=== PATIENT | male | born 1995 | race Caucasian/White ===

== ENCOUNTER 2017-03-13 15:40 | Emergency (ER) | payer OTHER ==
[2017-03-13 15:47] VITALS: BP 132/74
--- NOTE | 2017-03-13 16:07 | ER Document Report ---
ED Medical Screen (RME) - General Chief Complaint: Wound Infection Stated Complaint: FINGER PAIN Time Seen by Provider: 03/13/17 15:57 Notes: 22-year-old male patient suffered a table saw injury to left index finger on 02/04/2017. Had surgery on 02/11/2017. Had a cast placed on 02/21/2017. Had cast removed on 02/06/2017. He reports at the time the told in the wound and the bone area that had been operated on was not healing well and they are concerned about the need to do surgery again and resect more bone and soft tissue. He states the pain has been progressively getting worse since the cast was removed on 03/09/2017. He has a follow-up appointment on 03/22/2017 I have greeted and performed a rapid initial assessment of this patient. A comprehensive ED assessment and evaluation of the patient, analysis of test results and completion of the medical decision making process will be conducted by additional ED providers. TRAVEL OUTSIDE OF THE [place] IN LAST 30 DAYS: No - Related Data Allergies/Adverse Reactions: No Known Allergies Allergy (Verified 03/13/17 15:44) Past Medical History Renal/ Medical History: Denies: Hx Peritoneal Dialysis Physical Exam - Vital signs Vitals: Temp Pulse Resp BP Pulse Ox 98.3 F 73 16 132/74 H 99 03/13/17 15:44 03/13/17 15:44 03/13/17 15:44 03/13/17 15:44 03/13/17 15:44 Course - Vital Signs Vital signs: Temp Pulse Resp BP Pulse Ox 98.3 F 73 16 132/74 H 99 03/13/17 15:44 03/13/17 15:44 03/13/17 15:44 03/13/17 15:44 03/13/17 15:44
--- NOTE | 2017-03-13 16:42 | RADIOLOGY REPORT (SQ) ---
EXAM DESCRIPTION: FINGER LEFT COMPLETED DATE/TIME: 03/13/2017 4:21 pm REASON FOR STUDY: post-op pain, swelling COMPARISON: None. NUMBER OF VIEWS: Three views of the left hand and index finger. LIMITATIONS: None. FINDINGS: Soft tissue swelling with extensive bone lysis, destruction of the distal phalanx and dist al 3rd of the middle phalanx of the index finger. Patient reportedly had injury with surgery at an outside institution. Findings presumably related to osteomyelitis. Remaining bones are in tact. OTHER: No other significant finding. IMPRESSION: 1. Extensive bone destruction in the distal index finger as above. Presumably related o steomyelitis. TECHNICAL DOCUMENTATION: JOB ID: [id number]
[2017-03-13 16:55] LABS: ABSOLUTE BASOPHILS # (AUTO) 0.1 10^3/uL (0.0-0.2); ABSOLUTE EOSINOPHILS # (AUTO) 0.3 10^3/uL (0.0-0.6); ABSOLUTE LYMPHOCYTES (AUTO) 1.3 10^3/uL (0.5-4.7); ABSOLUTE MONOCYTES (AUTO) 0.4 10^3/uL (0.1-1.4); ABSOLUTE NEUT (AUTO) 2.7 10^3/uL (1.7-8.2); BASOPHILS % (AUTO) 1.2 % (0-2); EOSINOPHILS % (AUTO) 5.6 % (0-6); HEMATOCRIT 44.1 % (37.9-51.0); HEMOGLOBIN 15.3 g/dL (13.5-17.0); HGB HCT DIFFERENCE 1.8; LYMPHOCYTES % (AUTO) 28.1 % (13-45); MEAN CORPUSCULAR HEMOGLOBIN 31.5 pg (27.0-33.4); MEAN CORPUSCULAR HGB CONC 34.7 g/dL (32.0-36.0); MEAN CORPUSCULAR VOLUME 91 fl (80-97); MONOCYTES % (AUTO) 8.8 % (3-13); RED BLOOD COUNT 4.86 10^6/uL (4.35-5.55); RED CELL DISTRIBUTION WIDTH 13.5 % (11.5-14.0); SEGMENTED NEUTROPHILS % (AUTO) 56.3 % (42-78); WHITE BLOOD COUNT 4.7 10^3/uL (4.0-10.5)
--- NOTE | 2017-03-13 17:10 | ER Document Report ---
ED Wound - General Chief Complaint: Wound Infection Stated Complaint: FINGER PAIN Time Seen by Provider: 03/13/17 15:57 Mode of Arrival: Ambulatory Information source: Patient Notes: 22 yo male with hx work related table saw left index finger in january with surgery at [facility] was told feb 06 that he needs amputation due to unexpected osteomylitis of the distal phalanx. Wants to be checked- second opinion. No fever. On kefle 500mg tid. TRAVEL OUTSIDE OF THE [place] IN LAST 30 DAYS: No - Related Data Allergies/Adverse Reactions: No Known Allergies Allergy (Verified 03/13/17 15:44) Past Medical History - General Information source: Patient - Social History Smoking Status: Never Smoker Frequency of alcohol use: None Drug Abuse: None Occupation: [employer] Lives with: Family Family History: Reviewed & Not Pertinent Patient has suicidal ideation: No Patient has homicidal ideation: No - Medical History Medical History: Negative Renal/ Medical History: Denies: Hx Peritoneal Dialysis Past Surgical History: Reports: Hx Orthopedic Surgery - left index finger Review of Systems - Review of Systems Constitutional: No symptoms reported EENT: No symptoms reported Cardiovascular: No symptoms reported Respiratory: No symptoms reported Gastrointestinal: No symptoms reported Genitourinary: No symptoms reported Male Genitourinary: No symptoms reported Musculoskeletal: See HPI Skin: No symptoms reported Hematologic/Lymphatic: No symptoms reported Neurological/Psychological: No symptoms reported Physical Exam - Vital signs Vitals: Temp Pulse Resp BP Pulse Ox 98.3 F 73 16 132/74 H 99 03/13/17 15:44 03/13/17 15:44 03/13/17 15:44 03/13/17 15:44 03/13/17 15:44 Interpretation: Normal - General General appearance: Appears well, Alert - HEENT Head: Normocephalic, Atraumatic Eyes: Normal Pupils: PERRL Neck: Supple - Respiratory Respiratory status: No respiratory distress Chest status: Nontender Breath sounds: Normal Chest palpation: Normal - Cardiovascular Rhythm: Regular Heart sounds: Normal auscultation Murmur: No - Abdominal Inspection: Normal Distension: No distension Bowel sounds: Normal Tenderness: Nontender Organomegaly: No organomegaly - Back Back: Normal, Nontender - Extremities General upper extremity: Normal inspection, Nontender, Normal color, Normal ROM , Normal temperature General lower extremity: Normal inspection, Nontender, Normal color, Normal ROM , Normal temperature, Normal weight bearing. No: Snigh's sign Hand: Other - left index finger distal finger with old blood, lateral skin buds , whole finger large, mobile distally due to loss of bone (osteomylitis on imaging) - Neurological Neuro grossly intact: Yes Cognition: Normal Orientation: AAOx4 Bryan Coma Scale Eye Opening: Spontaneous Tam Coma Scale Verbal: Oriented Bryan Coma Scale Motor: Obeys Commands Tam Coma Scale Total: 15 Speech: Normal Motor strength normal: LUE, RUE, LLE, RLE Sensory: Normal - Psychological Associated symptoms: Normal affect, Normal mood - Skin Skin Temperature: Warm Skin Moisture: Dry Skin Color: Normal Course - Re-evaluation Re-evalutation: 03/13/17 17:11 ortho surgeon [facility]: dr. arben reyes orthopedic surgeon 03/13/17 17:16 03/13/17 17:37 dr bhagat who is nuclear monitoring technician for dr. reyes asked to give vancomycin 1 gram IV in ER , can increase the Keflex to four times per day, have him call the office in the morning for appt tue or tuesday to schedule the amputation. 03/13/17 19:46 soaked and clean with ultradex sponge , vaseline gauze, coban dressing. - Vital Signs Vital signs: Temp Pulse Resp BP Pulse Ox 98.3 F 73 16 132/74 H 99 03/13/17 15:44 03/13/17 15:44 03/13/17 15:44 03/13/17 15:44 03/13/17 15:44 - Laboratory Result Diagrams: 03/13/17 16:11 Laboratory results interpreted by me: 03/13/17 16:11 Plt Count 130 L Discharge - Discharge Clinical Impression: osteomylitis left index finger Condition: Good Disposition: HOME, SELF-CARE Instructions: Cephalexin ([facility]), Osteomyelitis ([facility]) Additional Instructions: You were given vancomycin 1 g intravenously in the emergency department Increase the cephalexin to 500 mg 4 times a day Call [facility] office in the morning for an appointment Tuesday or Tuesday with Dr. Reyes to schedule the amputation Return to the emergency room any fever chills body aches Please complete the patient satisfaction survey if you get one, and return it.. If you do not receive a survey, then you can go to the [facility] website, [email or web address] and place your comments about your very good care. Thank you very much. It was a pleasure being your medical provider today. Prescriptions: Cephalexin Monohydrate [Keflex 500 mg Capsule] 500 mg PO QID #28 capsule
[2017-03-13] MEDS ORDERED: VANCOMYCIN HCL INJ 1000 MG VIAL IV ONE (17:36)
[2017-03-13] MEDS ORDERED: PIPERACILLIN/TAZOBACTAM 3.375 GM VIAL IV ONE (18:03)
== END 2017-03-13 20:43 | disposition home or self-care (01) ==
LOC: ER 15:40
DX: M86.8X4 Other osteomyelitis, hand (principal); M79.645 Pain in left finger(s); W45.8XXD Other foreign body or object entering through skin, subsequent encounter
CPT/HCPCS: 99283; 96365; 36415; 87040; 85025; 73140; J3370